=== PATIENT | female | born 1960 | race Caucasian/White ===

== ENCOUNTER 2019-07-25 07:18 | Outpatient (CLI) | payer OTHER, BC, SELFPAY ==
--- NOTE | ~2019-07-25 | MM_ITS ---
EXAMINATION: MM screening [facility] BI w maria ines HISTORY: Screening mammogram TECHNIQUE: Craniocaudal and mediolateral oblique 3-D tomosynthesis images were obtained and synthetic 2-D images were generated. CAD analysis was submitted and interpreted. COMPARISON: 07/10/2018, 06/28/2017, 06/09/2016 BREAST PARENCHYMAL COMPOSITION: The breasts are heterogeneously dense, which may obscure small masses . FINDINGS: A subareolar asymmetry of the left breast on the craniocaudal view is stable on multiple co mparison examinations. There is no evidence of suspicious mass, calcification, or architectural disto rtion to suggest malignancy in either breast. There has been no suspicious interval change. IMPRESSION: 1. No mammographic evidence of malignancy. 2. Recommend routine screening mammography in one year. BI-RADS Category 2: Benign finding(s). Reviewed, dictated and finalized at location A. GRATION ASSOCIATE
== END 2019-07-25 07:19 | disposition home or self-care (01) ==
LOC: ANHIMG 07:21
PROVIDERS: Visit Provider Obstetrics & Gynecology
DX: Z12.31 Encounter for screening mammogram for malignant neoplasm of breast (principal)
CPT/HCPCS: 77063; 77067

== ENCOUNTER 2020-10-09 08:11 | Outpatient (CLI) | payer OTHER, SELFPAY ==
--- NOTE | ~2020-10-09 | MM_ITS ---
EXAMINATION: MM screening [facility] BI w maria ines HISTORY: Screening mammogram TECHNIQUE: Craniocaudal and mediolateral oblique 3-D tomosynthesis images were obtained and synthetic 2-D images were generated. CAD analysis was submitted and interpreted. COMPARISON: 07/25/2019, 07/18/2018, 06/28/2017 BREAST PARENCHYMAL COMPOSITION: The breasts are heterogeneously dense, which may obscure small masses . FINDINGS: There is no evidence of suspicious mass, calcification, or architectural distortion to sugg est malignancy in either breast. There has been no suspicious interval change. IMPRESSION: 1. No mammographic evidence of malignancy. 2. Recommend routine screening mammography in one year. BI-RADS Category 1: Negative Reviewed, dictated and finalized at location A.
== END 2020-10-09 08:12 | disposition home or self-care (01) ==
PROVIDERS: Visit Provider Obstetrics & Gynecology
DX: Z12.31 Encounter for screening mammogram for malignant neoplasm of breast (principal)
CPT/HCPCS: 77063; 77067

== ENCOUNTER 2021-10-20 10:31 | Outpatient (CLI) | payer BC, SELFPAY ==
--- NOTE | ~2021-10-20 | MM_ITS ---
EXAMINATION: MM screening [facility] BI w maria ines HISTORY: Screening mammogram TECHNIQUE: Craniocaudal and mediolateral oblique 3-D tomosynthesis images were obtained and synthetic 2-D images were generated. CAD analysis was submitted and interpreted. COMPARISON: 10/09/2020, 07/2019, 07/10/2018 bilateral screening mammogram examinations BREAST PARENCHYMAL COMPOSITION: The breasts are heterogeneously dense, which may obscure small masses . FINDINGS: There is no evidence of suspicious mass, calcification, or architectural distortion to sugg est malignancy in either breast. There has been no suspicious interval change. IMPRESSION: 1. No mammographic evidence of malignancy. 2. Recommend routine screening mammography in one year. BI-RADS Category 1: Negative Reviewed, dictated and finalized at location A.
== END 2021-10-20 10:32 | disposition home or self-care (01) ==
LOC: ANHIMG 10:32
PROVIDERS: Visit Provider Obstetrics & Gynecology
DX: Z12.31 Encounter for screening mammogram for malignant neoplasm of breast (principal)
CPT/HCPCS: 77063; 77067

== ENCOUNTER 2022-11-26 14:34 | Outpatient (CLI) | payer BC, SELFPAY ==
--- NOTE | ~2022-11-26 | MM_ITS ---
EXAMINATION: MM screening [facility] BI w maria ines HISTORY: Screening TECHNIQUE: Craniocaudal and mediolateral oblique 3-D tomosynthesis images were obtained and synthetic 2-D images were generated. CAD analysis was submitted and interpreted. COMPARISON: Comparison to multiple prior studies sequentially, with oldest reviewed study dated 05/22. BREAST PARENCHYMAL COMPOSITION: The breasts are heterogeneously dense, which may obscure small masses FINDINGS: There is a new nodular asymmetry in the medial aspect of the right breast on CC view. The l eft breast is stable without evidence for malignancy. IMPRESSION: 1. New nodular right breast asymmetry. 2. Additional mammographic views and possible breast ultrasound are recommended. BI-RADS Category 0: Incomplete: Needs additional imaging evaluation. Reviewed, dictated and finalized at location A. IMPRESSION: 1. New nodular right breast asymmetry. 2. Additional mammographic views and possible breast ultrasound are recommended . BI-RADS Category 0: Incomplete: Needs additional imaging evaluation.
== END 2022-11-26 14:35 | disposition home or self-care (01) ==
PROVIDERS: PCP Family Medicine; Visit Provider Obstetrics & Gynecology
DX: Z12.31 Encounter for screening mammogram for malignant neoplasm of breast (principal)
CPT/HCPCS: 77063; 77067

== ENCOUNTER 2023-11-29 11:51 | Outpatient (CLI) | payer BC, SELFPAY ==
--- NOTE | ~2023-11-29 | MM_ITS ---
EXAMINATION: MM screening [facility] BI w maria ines HISTORY: Screening TECHNIQUE: Craniocaudal and mediolateral oblique 3-D tomosynthesis images were obtained and synthetic 2-D images were generated. CAD analysis was submitted and interpreted. COMPARISON: Comparison to multiple prior studies sequentially, with oldest reviewed study dated 07/2021. BREAST PARENCHYMAL COMPOSITION: Dense: The breasts are heterogeneously dense, which may obscure small masses FINDINGS: There is no evidence of suspicious mass, calcification, or architectural distortion to sugg est malignancy in either breast. There has been no suspicious interval change. IMPRESSION: 1. No mammographic evidence of malignancy. 2. Recommend routine screening mammography in one year. BI-RADS Category 1: Negative Reviewed, dictated and finalized at location B.
== END 2023-11-29 11:52 | disposition home or self-care (01) ==
LOC: CHSIMG 11:52
PROVIDERS: PCP Family Medicine; Visit Provider Obstetrics & Gynecology
DX: Z12.31 Encounter for screening mammogram for malignant neoplasm of breast (principal)
CPT/HCPCS: 77063; 77067

== ENCOUNTER 2024-11-30 12:44 | Outpatient (CLI) | payer BC, SELFPAY ==
--- NOTE | ~2024-11-30 | MM_ITS ---
EXAMINATION: MM screening nav BI w maria ines HISTORY: Screening TECHNIQUE: Craniocaudal and mediolateral oblique 3-D tomosynthesis images were obtained and synthetic 2-D images were generated. CAD analysis was submitted and interpreted. COMPARISON: Comparison to multiple prior studies sequentially, with oldest reviewed study dated 07/18. BREAST PARENCHYMAL COMPOSITION: Dense: The breasts are extremely dense, which lowers the sensitivity of mammography. FINDINGS: There is no evidence of suspicious mass, calcification, or architectural distortion to sugg est malignancy in either breast. There has been no suspicious interval change. IMPRESSION: 1. No mammographic evidence of malignancy. 2. Recommend routine screening mammography in one year. BI-RADS Category 1: Negative Reviewed, dictated and finalized at location B.
--- OUTSIDE RECORDS SUMMARY | 2024-11-30 13:11 | XMS_ITS | Encounter Summary ---
Author Organization [facility] Address [address] [place] [address] Phone Care Team Providers Care Bellows Filler Name Role Phone Brent Bella MD Primary Care Provider [phone] Encounter Details Date Type Department Care Team (Latest Contact Info) Description 10/15/2022 Orders Only [facility] Scanning, Provider Social History Tobacco Use Types Packs/Day Years Used Date Smoking Tobacco: Never Smokeless Tobacco: Never Alcohol Use Standard Drinks/Week Comments Yes 0 (1 standard drink = 0.6 oz pur e alcohol) AUDIT-C Answer Date Recorded Frequency of Alcohol Consumption 2-4 times a wed01/06/2019 Average Number of Drinks 3 or 4 019 Frequency of Binge Drinking Weekly 12/19 PHQ-2 Answer Date Recorded PHQ-2 Total Score (If total score is 3 or more points, staff should administer the PHQ-9) 0 09/09/2022 Comments Unknown Sex and Gender Information Value Date Recorded Sex Assigned at Not on file 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 Gender Identity Not on file Sexual Orientation Not on file documented as of this encounter Plan of Treatment Not on file documented as of this encounter Procedures Procedure Name Priority Date/Time Associated Diagnosis Comments SCAN - LABS 10/15/2022 documented in this encounter Results * SCAN - LABS (10/15/2022) us Provider Scanning Final Result documented in this encounter Visit Diagnoses Not on filedocumented in this encounter Care Teams Bellows Filler Relationship Specialty Start Date End Date Brent Bella MD [address] [place] [address] PCP - General Family Medicine 10/24/21 documented as of this encounter
--- OUTSIDE RECORDS SUMMARY | 2024-11-30 13:11 | XMS_ITS | Referral Summary ---
Author Organization [facility] Address [address] [place] [address] Care Team Providers Care Automotive Heavy Mechanic Name Role Phone Brent Bella MD Primary Care Provider [phone] Encounters Date Type Department Care Team Description 09/22/2024 Results Follow-Up [facility] [address] [place] [phone] Abdomen Pelvis WO Contrast 09/21/2024 2:17 PM CDT - 09/21/2024 11:59 PM CDT Hospital Encounter [facility] [address] [place] [address] Acute right flank pain Discharge Disposition: Discharge to home or self care 09/18/2024 Orders Only [facility] [address] [phone] Brent Bella MD Acute right flank pain (Primary Dx) 09/10/2024 Results Follow-Up [facility] [address] [phone] Ashley Rico NP Urine culture Urine, clean voided 09/09/2024 1:02 PM CDT - 09/09/2024 11:59 PM CDT Hospital Encounter [facility] [address] [place] [address] Right lower quadrant abdominal pain Discharge Disposition: Discharge to home or self care 09/09/2024 11:30 AM CDT Office Visit [facility] at [address] [phone] Ashley Rico NP Low back pain, unspecified back pain laterality, unspecified chronicity, unspecified whether sciatica present (Primary Dx); Right lower quadrant abdominal pain 09/05/2024 3:15 PM CDT Office Visit [facility] at [address] [phone] Brent Bella MD Fatigue, unspecified type (Primary Dx); AGUSTIN (generalized anxiety disorder) from Last 3 Months Allergies No known active allergies Medications mirtazapine (REMERON) 15 mg tablet TAKE 1 TABLET BY MOUTH BEFORE BEDTIME 90 tablet 3 5 Active LORazepam (ATIVAN) 0.5 mg tablet Take 1 tablet (0.5 mg total) by mouth every 6 (six) hours as needed for anxiety 30 tablet 5 Active LORazepam (ATIVAN) 0.5 mg tablet Take 1 tablet (0.5 mg total) by mouth every 6 (six) hours as needed for anxiety 30 tablet 5 11/11/19 25 Discontinu ed(Reorder ) Active Problems Problem Noted Date Diagnosed Date AGUSTIN (generalized anxiety disorder) 09/17/2024 History of colon polyps 01/25/2024 Fatigue 10/18/2023 COVID-19 long hauler manifes ting chronic concentration deficit 04/23/2022 COVID-19 long hauler manifesting chronic fatigue 04/23/2022 COVID-19 long hauler manifesting chronic cough 1 06/23/2021 Long COVID 04/22/2022 Physical exam, annual 01/02/2022 Assessment & Plan (01/02/2022 4:58 PM CDT): Preventive exam; reviewed recommended preventive screenings and vaccinations. Encourage annual flu vaccine. Wear sunscreen/protective clothing when outdoors. BMI 28.0-28.9,adult 01/02/2022 Assessment & Plan (01/02/2022 4:59 PM CDT): Discussed healthy diet and importance of regular physical activity. Chest pain 10/20/2018 Abnormal ECG during exercise stress test 019 Hyperlipidemia 10/20/2018 Assessment & Plan (05/08/2022 5:21 PM HAND CEMENTER): Results for orders placed or performed in visit on 05/08/22 POCT lipid panel Result Value Ref Range Cholesterol, POC 266 mg/dL HDL, POC 76 mg/dL Triglycerides, POC 115 mg/dL LDL, Direct, POC 167 mg/dL Chol/HDL Ratio, POC 3.5 Non-HDL Cholesterol, POC 190 mg/dL Cholesterol Total, POC 166 mg/dL Reviewed today, ASCVD risk 3.3%. Will continue to monitor. Reviewed diet and exercise recommendations. Assessment & Plan (01/02/2022 4:56 PM CDT): Reviewed lipid panel with patient and ASCVD risk. Discussed diet and exercise recommendations. Will continue to monitor. Results for orders placed or performed in visit on 01/02/22 POCT lipid panel Result Value Ref Range Cholesterol, POC 259 mg/dL HDL, POC 80 mg/dL Triglycerides, POC 127 mg/dL LDL, Direct, POC 154 mg/dL Chol/HDL Ratio, POC 3.3 Non-HDL Cholesterol, POC 180 mg/dL Cholesterol Total, POC 259 mg/dL Depression 11/04/2013 Overview (09/23/2016): Depression Assessment & Plan (09/27/2020 3:39 PM CDT): Stable, well controlled; will continue mirtazapine 15 mg at bedtime to help with insomnia and depression Resolved Problems Problem Noted Date Diagnosed Date Resolved Date Urticaria of unknown origin 09/02/2022 09/02/2022 Right leg DVT 05/08/2022 08/24/2023 Assessment & Plan (05/08/2022 5:42 PM HAND CEMENTER): Improving, patient not having leg pain, redness or swelling. Continue xarelto 15 mg b.i.d. after 21 days patient will start Xarelto 20 mg daily. Patient to follow- up in 3 months, aware that she will need to take anticoagulation medication for at least 3 months. Discussed s/s of bleeding. Reviewed red flag s/s warranting immediate evaluation. Immunizations Immunization Administration Dates Next Due Influenza, Quadrivalent, Kathleen l Culture-based MDCK, Antibiotic Free, Intramuscular 03/29/2019 Influenza, Quadrivalent, Spl it, Preservative Free, Intramuscular 04/10/2015 Influenza, Trivalent, Cell Culture-based MDCK, Preservative Free, Antibiotic Free, Intramuscular 03/19/2023 Influenza, Trivalent, IM (MDV) 04/22/2014,2011,04/16/2011 Influenza, Trivalent, Preser vative Free, Intramuscular 03/17/2024 Influenza, Unspecified 03/07/2024(Deferr ed: Patient Refused),04/17/2022,01/02/2022(Deferre d: Patient Refused),06/21/2021(Deferred: Patient Refused),02/19/2021(Deferred: Patient Refused),06/21/2020(Deferred: Patient Refused),04/21/2020,06/21/2019(Deferre d: Patient Refused),08/25/2018(Deferred: Patient Refused) Moderna SARS-CoV-2 Monovalen t Vaccination (12+ YRS) 08/21/2020,07/24/2020 Sars-cov-2 Covid-19 Mrna, Bi valent, Original/omicron Ba.1 03/24/2024,03/12/2023 Tdap 03/17/2010 Social History Tobacco Use Types Packs/Day Years Used Date Smoking Tobacco: Never Smokeless Tobacco: Never Tobacco Cessation:Counseling Given: Not Answered Alcohol Use Standard Drinks/Week Comments Yes 0 (1 standard drink = 0.6 oz pur e alcohol) AUDIT-C Answer Date Recorded Q1: How often do you have a drink containing alc ohol? 2-4 times a month 04/20/2024 Q2: How many drinks containi ng alcohol do you have on a typical day when you are drinking? 3 or 4 04/20/2024 Q3: How often do you have si x or more drinks on one occasion? Never 04/20/2024 PHQ-2 Answer Date Recorded PHQ-2 Total Score (If total score is 3 or more points, staff should administer the PHQ-9) 0 09/05/2024 Personal Safety Answer Date Recorded Have you ever been in or are you currently in a harmful physical or emotional relationship or is someone making you feel afraid or unsafe? Denies 04/20/2024 Comments No Sex and Gender Information Value Date Recorded Sex Assigned at Not on file Legal Sex Female 2:29 AM HAND CEMENTER Gender Identity Not on file Sexual Orientation Not on file Last Filed Vital Signs Vital Sign Reading Time Taken Comments Blood Pressure 124/74 09/09/2024 11:21 AM CDT Pulse 66 09/09/2024 11:21 AM CDT Temperature 36.4 C (97.6 F) 09/09/2024 11:21 AM CDT Respiratory Rate 20 09/09/2024 11:21 AM CDT Oxygen Saturation 100% 09/09/2024 11:21 AM CDT Inhaled Oxygen Concentration - - Weight 70.8 kg (156 lb) 09/09/2024 11:21 AM CDT Height 165.1 cm (5' 5) 09/09/2024 11:21 AM CDT Body Mass Index 25.96 09/09/2024 11:21 AM CDT Plan of Treatment Not on file Medical Devices Implanted Type Area Area Safety Manager Device Identifier Shelf Expiration Date Model / Serial / Lot [employer] Mammomark Cormark Tissue U Marker Breast Biopsy Collagen Titanium [id number] - [id number] Implanted:Qty: 1 on 01/01/2023 at [facility] [employer] [id number] 10/26/2023 [id number] / / [id number] Procedures Procedure Name Priority Date/Time Associated Diagnosis Comments CT ABDOMEN PELVIS WO CONTRAST Schedule Routine, Read Routine (OP Routine) 09/21/2024 2:23 PM CDT Acute right flank pain POCT URINALYSIS DIPSTICK Routine 09/09/2024 11:36 AM CDT Right lower quadrant abdominal pain URINE CULTURE Routine 09/09/2024 11:32 AM CDT Right lower quadrant abdominal pain COLONOSCOPY 04/20/2024 8:58 AM CDT SCREENING MAMMOGRAM BILATERAL W BENJAMIN Schedule Routine, Read Routine (OP Routine) 11/29/2023 HEPATITIS C ANTIBODY Routine 08/18/2017 11:43 AM HAND CEMENTER Encounter for hepatitis C screening test for low risk patient from Last 3 Months or Most Recently Relevant to Health Maintenance Results * CT Abdomen Pelvis WO Contrast (09/21/2024 2:23 PM CDT) Anatomical Region Laterality Modality Body N/A Computed Tomogra phy 09/21/2024 2:44 PM CDT Impressions 09/21/2024 2:44 PM CDT No explanation for acute abdominal pain Electronically signed by: Toney Perez M.D. Narrative 09/21/2024 2:44 PM CDT EXAMINATION: Computed tomography of the abdomen and pelvis without intravenous contrast HISTORY: Acute right flank pain TECHNIQUE: Transaxial computed tomographic images of the abdomen and pelvis were obtained without intravenous contrast according to the standard protocol. COMPARISON: Computed tomography examination abdomen pelvis without contrast 11/09/2023 FINDINGS: Lung bases are clear. Heart size is normal. Small cyst noted within the liver. Gallbladder, pancreas, spleen appear normal. 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 Both adrenal glands and both kidneys appear normal. There is no renal stones. There is no hydronephrosis. Bowel gas pattern and appendix appear normal. Uterus, adnexa, urinary bladder appear normal. Images obtained with bone window settings demonstrate no suspicious osseous. Procedure Note Toney Perez MD - 09/21/2024 EXAMINATION: Computed tomography of the abdomen and pelvis without intravenous contrast HISTORY: Acute right flank pain TECHNIQUE: Transaxial computed tomographic images of the abdomen and pelvis were obtained without intravenous contrast according to the standard protocol. COMPARISON: Computed tomography examination abdomen pelvis without contrast 11/09/2023 FINDINGS: Lung bases are clear. Heart size is normal. Small cyst noted within the liver. Gallbladder, pancreas, spleen appear normal. 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 Both adrenal glands and both kidneys appear normal. There is no renal stones. There is no hydronephrosis. Bowel gas pattern and appendix appear normal. Uterus, adnexa, urinary bladder appear normal. Images obtained with bone window settings demonstrate no suspicious osseous. IMPRESSION: No explanation for acute abdominal pain Electronically signed by: Toney Perez M.D. Brent Bella MD IMG CT PROCEDURES Final R esult * (ABNORMAL) POCT urinalysis dipstick (09/09/2024 11:36 AM CDT) Color, Urine, POC Light Yellow Clarity, ur, POC Clear Clear Glucose, ur, POC Negative Negative MG/DL Bilirubin, ur, POC Negative Negative, Small, Moderate, Large Ketones, ur, POC Negative Negative Specific Leon, POC 1.015 1.003 - 1.030 Blood, ur, POC Trace(A) Negative pH, ur, POC 7.0 5.0 - 8.0 Protein, ur, POC Negative Negative Urobilinogen, urine, POC 0.2 0.2 - 1.0 mg/dL Nitrite, ur, POC Negative Negative Leukocytes, ur, POC Negative Negative Lot Number [id number] Urine 09/09/2024 11:3 6 AM CDT Ashley Rico NP POINT OF CARE TEST ORDERAB LES Final Result * Urine culture Urine, clean voided (09/09/2024 11:32 AM CDT) Report Final Report: Less than 100,000 colonies/mL (clinically insignificant growth based on current clinical standards) Comment:Testing performed by : [facility], [address] [facility], [place]., [address] Organism (CLINICALLY INSIGNIFICANT GROWTH CERNER Urine, clean voided 09/09/2024 11:32 AM CDT 09/09/2024 5:25 PM CDT Narrative CLAUDIA - 09/10/2024 7:11 PM CDT Testing performed by [facility] Microbiology Laboratory ([phone]) Ashley Rico NP LAB MICROBIOLOGY - GENERAL [place] [address] [facility] Department [place] [address] * Colonoscopy (04/20/2024 8:58 AM CDT) Anatomical Region Laterality Modality Other Narrative Procedure Note Michelle Rodriguez MD - 04/20/2024 8:58 AM CDT ENDOSCOPY LAB Patient Name: Gretchen Albarado Procedure Date: 04/20/2024 8:58 AM Date of : 1960 Admit Type: Outpatient Age: 64 Gender: Female Attending MD: Michelle Rodriguez M.D. Room: [facility] ENDOSCOPY ROOM 01 Note Status: Finalized Procedure: Colonoscopy Indications: High risk colon cancer surveillance: Personalhistory of colonic polyps, Last colonoscopy: December 2018 Providers: Michelle Rodriguez M.D. Referring MD: Brent Bella M.D. Medicines: Monitored Anesthesia Care Complications: No immediate complications. Estimated Blood Loss: Estimated blood loss was minimal. Procedure: Pre-Anesthesia Assessment: - Prior to the procedure, a History and Physicalwas performed, and patient medications, allergies and sensitivities were reviewed. The patient'stolerance of previous anesthesia was reviewed. The benefits, risks and alternatives of theprocedure and sedation were discussed and informed consentwas obtained. All questions were answered. Please referto the signed informed consent document in the medical record. The scope was passed under direct vision.The [id number] was introduced through the anusand advanced to the terminal ileum, with identificationof the appendiceal orifice and IC valve. Thecolonoscopy was somewhat difficult due to significant looping. Successful completion of the procedure was aided by using a colowrap. The patient tolerated theprocedure well. The quality of the bowel preparation was evaluated using the BBPS ([place] Bowel Preparation Scale) with scores of: Right Colon = 3, Transverse Colon = 3 and Left Colon = 3 (entire mucosa seenwell with no residual staining, small fragments of stoolor opaque liquid). The total BBPS score equals 9. The bowel preparation used was GoLYTELY via split dose instruction. AI Technology was utilized during the procedure to aid in polyp detection. Findings: The perianal and digital rectal examinations were normal. The terminal ileum appeared normal. Two sessile polyps were found in the transverse colon and ascending colon. The polyps were 3 to 4 mm in size. These polyps were removedwith a cold snare. Resection and retrieval were complete. The exam was otherwise without abnormality on direct and retroflexion views. Impression: - The examined portion of the ileum was normal. - Two 3 to 4 mm polyps in the transverse colon andin the ascending colon, removed with a cold snare. Resected and retrieved. - The examination was otherwise normal on directand retroflexion views. Recommendation: - The patient will be observed post-procedure,until all discharge criteria are met. - Await pathology results. - Repeat colonoscopy in 7 years for surveillancebased on pathology results. - Biopsy results are typically available within 7-10 days and you will be contacted with the results. If you have not recieved your results within this timeframe, please call [phone] regarding your results. - Contact Information: During normal business hours - Please call theNurse Coordinator: [phone] After hours, evening, nights, weekends and holidays- Please call the hospital plunger machine operator at and ask for the GI fellow mission systems engineer. - . Attending Participation: I personally performed the entire procedure. Electronically Signed By: Michelle Rodriguez M.D. Michelle Rodriguez M.D. 04/20/2024 9:48:40 AM Number of Addenda: 0 Note Initiated On: 04/20/2024 8:58 AM Michelle Rodriguez MD ENDOSCOPY PROCEDURES Fin al Result * Screening Mammogram Bilateral W Benjamin (11/29/2023) Anatomical Region Laterality Modality Breast Bilateral Mammography Historical Provider IMG MAMMO PROCEDURES Yudi l Result * Hepatitis C antibody (08/18/2017 11:43 AM HAND CEMENTER) Hep C Ab Nonreactive Nonreactive [facility] Comment: Interpretive Data Positive and greyzone results should be confirmed by a molecular method. If positive or greyzone, a second separately collected sample should be submitted for Hepatitis C Virus RNA. Detection and Quantitation by Real-Time Reverse Circuit Breaker Assembler-PCR.Current Interpretive data was last revised on 2016. Blood specimen (specimen) 08/18/2017 11:43 AM HAND CEMENTER 08/18/2017 3:11 PM HAND CEMENTER Narrative [facility] - 08/19/2017 10:31 AM HAND CEMENTER Valencia Marie MD LAB MICROBIOLOGY - GEN ERAL ORDERABLES Edited Result - Final [facility] Department [place] [address] from Last 3 Months or Most Recently Relevant to Health Maintenance Insurance [employer] PA Entigo PA Entigo PA Entigo PA Advance Directives For more information, please contact: [phone] * Full Code (Latest Code Status on File) Date Activated Date Inactivated Comments 04/20/2024 8:37 AM 04/20/2024 2:26 PM * Full Code Date Activated Date Inactivated Comments 01/06/2019 1:23 PM 01/06/2019 7:33 PM Care Teams Automotive Heavy Mechanic Relationship Specialty Start Date End Date Brent Bella MD [address] [place] [address] PCP - General Family Medicine 10/24/21
--- OUTSIDE RECORDS SUMMARY | 2024-11-30 13:11 | XMS_ITS | Clinical Summary ---
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 Continue xarelto 15 mg b.i.d. after 21 days patient will start Xarelto 20 mg daily. Patient to follow- up in 3 months, aware that she will need to take anticoagulation medication for at least 3 months. Discussed s/s of bleeding. Reviewed red flag s/s warranting immediate evaluation. Encounters Date Type Department Care Team Description 09/22/2024 Results [facility] [address] [id number] Abdomen Pelvis WO Contrast 09/21/2024 2:17 PM CDT - 09/21/2024 11:59 PM CDT Hospital Encounter [facility] [id number] [place] [address] Acute right flank pain Discharge Disposition: Discharge to home or self care 09/18/2024 Orders Only [facility] [address] [phone] Brent Bella MD Acute right flank pain (Primary Dx) 09/10/2024 Results Follow-Up [facility] [address] [address] Ashley Rico NP Urine culture Urine, clean voided 09/09/2024 1:02 PM CDT - 09/09/2024 11:59 PM CDT Hospital Encounter [address] [address] Right lower quadrant abdominal pain Discharge Disposition: Discharge to home or self care 09/09/2024 11:30 AM CDT Office Visit [facility] [address] [id number] Ashley Rico, ABBY Low back pain, unspecified back pain laterality, unspecified chronicity, unspecified whether sciatica present (Primary Dx); Right lower quadrant abdominal pain 09/05/2024 3:15 PM CDT Office Visit [facility] at [address] [address] Brent Bella MD Fatigue, unspecified type (Primary Dx); AGUSTIN (generalized anxiety disorder) from Last 3 Months Immunizations Immunization Administration Dates Next Due Influenza, [...] Bi valent, Original/omicron Ba.1 03/24/2024,03/12/2023 Tdap 03/17/2010 Surgical History Surgery Date Site/Laterality Comments BREAST BIOPSY 01/01/2023 Right TONSILLECTOMY AND ADENOIDECTOMY Medical History Medical History Date Comments Depression 2005 Anxiety Family History Medical History Relation Name Comments Clotting disorder Brother Ray Hypertension Brother Ray Cancer Father Froilan Craig Lymphoma Father Froilan Craig Cancer -lymph rahul; Skin cancer Father Froilan Craig Cancer -skin; skin cancer Father Froilan Craig Cancer Mother Teresa Beargio Diabetes Mother Teresa Craig Diabetes mellit us; Lung cancer Mother Teresa Craig Cancer -lung; Clotting disorder Sister 1 Brando No Known Problems Sister 2 Relation Name Status Comments Brother Ray Alive Father Froilan Craig (Age 69) Mother Teresa Craig (Age 79) Sister 1 Brando Alive Sister 2 Alive Social History Tobacco Use Types Packs/Day Years [...] on file Legal Sex Female 2:29 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 Gender Identity Not on file Sexual Orientation Not on file Obstetrics History Last Filed Vital Signs Vital Sign Reading [...] 09/09/2024 11:21 AM CDT Plan of Treatment Health Maintenance Due Date Last Done Comments Cervical Cancer Screening 1960 Hepatitis B Screening 1979 Zoster Vaccine (1 of 2) 2011 DTaP/Tdap/Td Vaccine (2 - Td or Tdap) 03/17/2020 03/17/2010 Regular Well Visit/Exam 18-64 02/17/2024 02/16/2023, 01/02/2022, 09/27/2020, Additional history exists Covid-19 Vaccine ( season) 2024 03/24/2024, 03/12/2023, 08/21/2020, Additional history exists Breast Cancer Screening-Mammogram 11/28/2024 11/29/2023, 11/26/2022, 07/01/2019 Colon Cancer Screening-FIT 04/20/202504/20, 01/06/2019, 07/31/2013 Depression Screening 09/05/2025 09/05/2024, 03/07/2024, 10/18/2023, Additional history exists Colon Cancer Screening-Colonoscopy 04/20/2031 04/20/2024, 01/06/2019, 07/31/2013 Hepatitis C Screening Completed 08/18/2017 Influenza Vaccine Completed 03/17/2024, , 04/17/2022, Additional history exists Colon Cancer Screening-CT Colonography Discontinued 04/20/2024, 01/06/2019, 07/31/2013 Colon Cancer Screening-DNA Stool Discontinued 04/20/2024, 01/06/2019, 07/31/2013 Colon Cancer Screening-Sigmoidoscopy Discontinued 04/20/2024, 01/06/2019, 07/31/2013 Pneumococcal vaccine <65 Aged Out No longer eligible based on patient's age to complete this topic Medical Devices Implanted Type Area Coffee Sommelier Device Identifier Shelf Expiration Date Model / Serial / Lot ThumbAd Mammomark Cormark Tissue U Marker Breast Biopsy Collagen [id number] [id number] - [id number] Implanted:Qty: 1 on 01/01/2023 at [facility] ThumbAd [id number] 10/26/2023 [id number] / / [id number] Procedures Procedure Name Priority Date/Time Associated Diagnosis [...] HEPATITIS C ANTIBODY Routine 08/18/2017 11:43 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 Encounter for hepatitis C screening test for [...] Large Ketones, ur, POC Negative Negative Specific [place], POC 1.015 1.003 - 1.030 Blood, ur, POC Trace(A) Negative pH, ur, POC 7.0 5.0 - 8.0 Protein, ur, POC Negative Negative Urobilinogen, urine, POC 0.2 0.2 - 1.0 mg/dL Nitrite, ur, POC Negative Negative Leukocytes, ur, POC Negative Negative Lot Number [id number] Urine 09/09/2024 11:3 6 AM CDT Ashley Rico NP POINT OF CARE TEST ORDERAB LES Final Result * Urine culture Urine, clean voided (09/09/2024 11:32 AM CDT) Report Final Report: Less than 100,000 colonies/mL (clinically insignificant growth based on current clinical standards) Comment:Testing performed by : [facility], [address] [facility], [place]., [address] Organism (CLINICALLY INSIGNIFICANT GROWTH CLAUDIA Urine, clean voided 09/09/2024 11:32 AM CDT 09/09/2024 5:25 PM CDT Narrative CLAUDIA - 09/10/2024 7:11 PM CDT Testing performed by [facility] ([phone]) us Ashley Rico ASSISTANT [facility] MICROBIOLOGY - GENERAL ORDERABLES Final Result CLAUDIA [id number] [facility] Department of Laboratories [place] [id number] * Colonoscopy (04/20/2024 8:58 AM CDT) Anatomical Region Laterality Modality Other Narrative Procedure Note Michelle Rodriguez MD - 04/20/2024 8:58 AM CDT ENDOSCOPY LAB Patient Name: Gretchen Albarado Procedure Date: 04/20/2024 8:58 AM Date of : 1960 Admit Type: Outpatient Age: 64 Gender: Female Attending MD: Michelle Rodriguez M.D. Room: [facility] ENDOSCOPY RO[facility] 01 Note Status: Finalized Procedure: [...] The scope was passed under direct vision.The [id number] was introduced through the anusand advanced to the terminal ileum, with identificationof the appendiceal orifice and IC valve. Thecolonoscopy was somewhat difficult due to significant looping. Successful completion of the procedure was aided by using a colowrap. The patient tolerated theprocedure well. The quality of the bowel preparation was evaluated using the BBPS ([place] Bowel Preparation Scale) with scores of: Right [...] your results within this timeframe, please call [phone] regarding your results. - Contact Information: During normal business hours - Please call theNurse Coordinator: [phone] After hours, evening, nights, weekends and holidays- Please call the hospital electric knife operator at and ask for the GI fellow office automation technician. - . Attending Participation: I personally performed [...] * Hepatitis C antibody (08/18/2017 11:43 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) Hep C Ab Nonreactive Nonreactive CLAUDIA DELACRUZ Comment: Interpretive Data Positive and greyzone results should be confirmed by a molecular method. If positive or greyzone, a second separately collected sample should be submitted for Hepatitis C Virus RNA. Detection and Quantitation by Real-Time Reverse Financial Risk Manager-PCR.Current Interpretive data was last revised on 2016. Blood specimen (specimen) 08/18/2017 11:43 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 08/18/2017 3:11 PM 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 Narrative CLAUDIA DELACRUZ - 08/19/2017 10:31 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 Valencia Marie MD LAB MICROBIOLOGY - GEN ERAL ORDERABLES Edited Result - Final CLAUDIA [facility] Department [place] [address] from Last 3 Months or Most Recently Relevant to Health Maintenance [place] Advance Directives For more information, please contact: [phone] * Full Code (Latest Code Status on File) Date Activated Date Inactivated Comments 04/20/2024 8:37 AM 04/20/2024 2:26 PM * Full Code Date Activated Date Inactivated Comments 01/06/2019 1:23 PM 01/06/2019 7:33 PM Care Teams Sensitizer Relationship Specialty Start Date End Date Brent Bella MD [address] [place] [address] PCP - General Family Medicine 10/24/21
== END 2024-11-30 12:45 | disposition home or self-care (01) ==
PROVIDERS: PCP Family Medicine; Visit Provider Obstetrics & Gynecology
DX: Z12.31 Encounter for screening mammogram for malignant neoplasm of breast (principal)
CPT/HCPCS: 77063; 77067